=== PATIENT | male | born 1975 | race African-American/Black ===

== ENCOUNTER 2017-05-05 00:01 | Emergency (ER) | payer OTHER, BC ==
[2017-05-05] MEDS ORDERED: KETOROLAC 30 MG/ML INJ. (01:07)
[2017-05-05] MEDS: KETOROLAC 30 MG/ML INJ. IV (01:09)
== END 2017-05-05 01:36 | disposition home or self-care (01) ==
LOC: ER 00:01
DX: S16.1XXA Strain of muscle, fascia and tendon at neck level, initial encounter (principal); R07.89 Other chest pain; V43.52XA Car driver injured in collision with other type car in traffic accident, initial encounter; Y93.I9 Activity, other involving external motion; Y92.410 Unspecified street and highway as the place of occurrence of the external cause; Y99.8 Other external cause status
CPT/HCPCS: 70450; 71010; 72125; 96374; 99284-25; J1885